=== PATIENT | female | born 1970 | race Caucasian/White ===

== ENCOUNTER 2016-12-19 02:02 | Emergency (ER) | payer MEDICAID ==
[~2016-12-19] VITALS: Ht 170.2 cm; Wt 72.5 kg
[~2016-12-19 02:02] MED LIST: HYDR-3498 PO; HYDR-762 PO; IBUP-1542 PO; RANI150T9 PO; SUCR1TAB56 PO
[2016-12-19 02:04] VITALS: Ht 170.2 cm; Wt 72.5 kg
--- NOTE | 2016-12-19 02:27 | ERA ---
ER Documentation Chief Complaint Date/Time DATE: 12/19/16 TIME: 02:26 Chief Complaint apd pain and back pain with nausea that started last night HPI The patient is a 46-year-old female, presenting to the ER because of lower abdominal pain, associated with dysuria, nausea but no vomiting for 1 day. He denies fever, chills, neck pain, chest pain, dyspnea, diarrhea. She does not smoke nor drink Past medical history: None Past surgical history: Abdominoplasty 3 years ago ROS All systems reviewed and are negative except as per history of present illness. Medications Home Meds Active Scripts Ibuprofen* (Motrin*) 600 Mg Tab, 600 MG PO Q6H Y for PAIN AND OR ELEVATED TEMP, #30 TAB Prov:TRES MAURO MD 12/19/16 Ciprofloxacin Hcl* (Ciprofloxacin Hcl*) 500 Mg Tablet, 500 MG PO BID for 10 Days , TAB Prov:TRES MAURO MD 12/19/16 Ranitidine Hcl* (Zantac*) 150 Mg Tablet, 150 MG PO BID Y for GASTROINTESTINAL UPSET, #30 TAB Prov:OMAR SHIN S. 04/14/15 Hydrocodone Bit-Acetaminophen* (Stuart*) 10-325 Mg Tablet, 1 TAB PO Q6 Y for PAIN , #20 TAB Prov:OMAR SHIN. 04/14/15 Sucralfate* (Carafate*) 1 Gm Tab, 1 GM PO QID, #30 TAB Prov:OMAR SHIN S. 04/14/15 Ibuprofen* (Ibuprofen*) 600 Mg Tablet, 600 MG PO Q6, #30 TAB Prov:BILL HART PA-C 03/14/15 Hydrocodone Bit-Acetaminophen* (Stuart*) 5-325 Mg Tab, 1 TAB PO Q4H Y for PAIN, # 14 TAB Prov:BILL HART PA-C 03/14/15 Allergies Allergies: Coded Allergies: No Known Allergy (Verified Allergy, Mild, NONE, 02/10/07) PMhx/Soc Hx Alcohol Use: No Hx Substance Use: No Hx Tobacco Use: No Physical Exam Vitals Vital Signs Date Time Temp Pulse Resp B/P Pulse Ox O2 Delivery O2 Flow Rate FiO2 12/19/16 06:21 89 18 123/79 96 Room Air 12/19/16 04:05 72 20 122/74 98 Room Air 12/19/16 02:04 98.3 92 16 138/77 100 Physical Exam Const: No acute distress. Head: Atraumatic. Eyes: Normal Conjunctiva. ENT: Normal External Ears, Nose and Mouth. Neck: Full range of motion. No meningismus. Resp: Clear to auscultation bilaterally. Cardio: Regular rate and rhythm, no murmurs. Abd: Soft, non distended, normal bowel sounds, diffuse lower abdominal tenderness, no rigidity, rebound, CVA tenderness Skin: No petechiae or rashes. Back: No midline or flank tenderness. Ext: No cyanosis, or edema. Neur: Awake and alert. No focal deficit Psych: Normal Mood and Affect. Result Diagram: 12/19/16 0245 12/19/16 0245 Results 24 hrs Laboratory Tests Test 12/19/16 02:45 12/19/16 03:15 White Blood Count 13.410^3/ul Red Blood Count 4.2310^6/ul Hemoglobin 11.9g/dl Hematocrit 36.8% Mean Corpuscular Volume 87.0fl Mean Corpuscular Hemoglobin 28.1pg Mean Corpuscular Hemoglobin Concent 32.3g/dl Red Cell Distribution Width 15.4% Platelet Count 31086^3/UL Mean Platelet Volume 11.4fl Neutrophils % 77.0% Lymphocytes % 14.3% Monocytes % 7.3% Eosinophils % 0.7% Basophils % 0.3% Nucleated Red Blood Cells % 0.0/100WBC Neutrophils # 10.310^3/ul Lymphocytes # 1.910^3/ul Monocytes # 1.010^3/ul Eosinophils # 0.110^3/ul Basophils # 0.010^3/ul Nucleated Red Blood Cells # 0.010^3/ul Sodium Level 141mmol/L Potassium Level 4.0mmol/L Chloride Level 111mmol/L Carbon Dioxide Level 28mmol/L Anion Gap 6 Blood Urea Nitrogen 10mg/dl Creatinine 0.60mg/dl Glucose Level 94mg/dl Calcium Level 9.5mg/dl Total Bilirubin 0.1mg/dl Direct Bilirubin 0.00mg/dl Indirect Bilirubin 0.1mg/dl Aspartate Amino Transf (AST/SGOT) 18IU/L Alanine Aminotransferase (ALT/SGPT) 42IU/L Alkaline Phosphatase 94IU/L Total Protein 6.8g/dl Albumin 3.9g/dl Globulin 2.90g/dl Albumin/Globulin Ratio 1.34 Lipase 45U/L Bedside Urine pH (LAB) 5.5 Bedside Urine Protein (LAB) 1+ Bedside Urine Glucose (UA) Negative Bedside Urine Ketones (LAB) Negative Bedside Urine Blood 2+ Bedside Urine Nitrite (LAB) Negative Bedside Urine Leukocyte Esterase (L 1+ Current Medications Medications (Trade) Dose Ordered Sig/Chiara Route PRN Reason Start Time Stop Time Status Last Admin Dose Admin Sodium Chloride (NS) 1,000 ml @ 1,000 mls/hr Q1H ONCE IV 12/19/16 03:00 12/19/16 03:59 DC 12/19/16 02:57 Morphine Sulfate (morphine) 2 mg ONCE ONCE IV 12/19/16 03:00 12/19/16 03:01 DC 12/19/16 02:52 Ondansetron HCl (Zofran Inj) 4 mg ONCE STAT IV 12/19/16 02:33 12/19/16 02:34 DC 12/19/16 02:52 Ketorolac Tromethamine 30 mg 30 mg ONCE STAT IV 12/19/16 03:58 12/19/16 03:59 DC 12/19/16 04:09 Sodium Chloride (NS) 1,000 ml @ 1,000 mls/hr Q1H ONCE IV 12/19/16 04:30 12/19/16 05:29 DC 12/19/16 04:10 Morphine Sulfate (morphine) 2 mg ONCE ONCE IV 12/19/16 04:30 12/19/16 04:31 DC 12/19/16 04:20 Procedures/[place] [id number] Radiology Main Line: [phone] DIAGNOSTIC IMAGING REPORT Patient: GLORIA FAY : 1970 Age: 46 Sex: F MR #: [id number] DOS: 12/19/16 0404 Ordering MD: TRES MAURO MD Location: E/R Room/Bed: PROCEDURE: CT ABDOMEN/PELVIS WITHOUT CONTRAST CLINICAL INDICATION: 46-year-old female with abdominal pain. TECHNIQUE: The study was performed utilizing a [employer] 64-slice CT scanner. Direct axial sections were obtained through the abdomen and pelvis without the use of intravenous contrast material. Sagittal and coronal reformations were obtained. One or more of the following dose reduction techniques were utilized: automated exposure control, adjustment of the mA and/ or kV according to patient's size or use of iterative reconstruction technique. The images were reviewed on a PACS workstation. CTD/vol = 12.6 mGy; Total Exam DLP = 789.9 mGy-cm. COMPARISON: None. FINDINGS: The inferior aspects of bilateral breast implants are noted. There is minimal bibasilar subsegmental atelectasis. There is no evidence for significant pleural effusion. The liver has a normal size and contour without focal areas of abnormal density. No intrahepatic nor extrahepatic biliary ductal dilatation is seen. The gallbladder contains a dependent discoid calcified gallstone with a smaller punctate calcified gallstone without significant wall thickening or pericholecystic fluid. The pancreas is without areas of abnormal attenuation. The spleen is identified and has a normal size without abnormal density. The adrenal glands are unremarkable. There is mild prominence of the right renal collecting system with proximal right perinephric infiltration but without evidence for chandni obstructive uropathy or nephroureterolithiasis. The left kidney is without abnormal density, calculi or obstruction. The urinary bladder contains urine. There is fecalization of the terminal ileum and retained stool within the ascending and transverse colon without obstruction. The appendix is visualized and is without abnormal thickening or surrounding inflammatory reaction. The uterus is unremarkable. There is no significant free fluid. Surgical clips are seen within the right inguinal region. The aortoiliac vessels are without aneurysmal dilatation. The osseous structures are intact. IMPRESSION: 1. Cholelithiasis. 2. Mild prominence of the right renal collecting system with proximal right perinephric infiltration without evidence for chandni obstructive uropathy or nephroureterolithiasis. This may represent infectious process a recently passed stone. Clinical correlation is necessary. 3. Fecalization of the terminal ileum with mild retained proximal colonic stool without obstruction. 4. No CT evidence for appendicitis. 5. Surgical clips right inguinal region. .Tashi Fowler MD, MD Date Time Electronically viewed and signed by .Tashi Fowler MD, on 12/19/2016 05:06 .M/ CC: TRES MAURO MD MEDICAL MAKING DECISION: The patient is a 46-year-old female, presenting to the ER because of acute cystitis, acute biliary colic. She was treated with 2 L normal saline for clinical dehydration, morphine 2 mg IV 2 and Toradol 30 mg IV 1 for pain and Zofran IV for nausea with good response. The differential diagnoses considered include but are not limited to cholelithiasis, cholecystitis, cystitis, pancreatitis, hepatitis, gastritis, peptic ulcer disease, gastric ulcer, appendicitis, diverticulitis, cholangitis, choledocholithiasis, partial small bowel obstruction. Departure Diagnosis: Primary Impression: UTI (urinary tract infection) Additional Impressions: Biliary colic Anemia Condition: Good Comments She was discharged with Cipro and Motrin I discussed the findings with the patient. I advised the patient to follow-up with the primary physician in about 1-2 days, sooner if needed and return if any concern. The patient's blood pressure was elevated (>120/80) but appears stable without evidence of hypertension emergency or urgency. The patient was counseled about the risks of hypertension and urged to pursue outpatient monitoring and therapy within a week with their primary care physician. TRES MAURO MD December 19, 2016 02:27
[2016-12-19] MEDS ORDERED: ONDANSETRON 4 MG INJ IV STA (02:33)
[2016-12-19 02:55] LABS: ADD SCAN DIFF NO
[2016-12-19 02:57] LABS: BASOPHILS % 0.3 % (0.0-2.0); EOSINOPHILS # 0.1 10^3/ul (0.0-0.5); EOSINOPHILS % 0.7 % (0.0-7.0); HEMATOCRIT 36.8 % (37.0-47.0); HEMOGLOBIN 11.9 g/dl (12.0-16.0); LYMPHOCYTES # 1.9 10^3/ul (0.8-2.9); LYMPHOCYTES % 14.3 % (15.0-51.0); MEAN CORPUSCULAR HEMOGLOBIN 28.1 pg (29.0-33.0); MEAN CORPUSCULAR HGB CONC 32.3 g/dl (32.0-37.0); MEAN PLATELET VOLUME 11.4 fl (7.4-10.4); MONOCYTES % 7.3 % (0.0-11.0); NEUTROPHIL # 10.3 10^3/ul (1.6-7.5); PLATELET COUNT 288 10^3/UL (140-415); RED BLOOD COUNT 4.23 10^6/ul (4.20-5.40); RED CELL DISTRIBUTION WIDTH 15.4 % (11.5-14.5); WHITE BLOOD COUNT 13.4 10^3/ul (4.8-10.8)
[2016-12-19] MEDS ORDERED: morphine 2 MG INJ IV ONE ×2 (03:00→04:30)
[2016-12-19] MEDS ORDERED: SOD CHLORIDE 0.9% 1,000 ML IV ONE ×2 (03:00→04:30)
[2016-12-19 03:13] LABS: URINE BLOOD (Dip) POC 2+ (NEGATIVE)
[2016-12-19 03:19] LABS: ALBUMIN 3.9 g/dl (3.3-4.9)
[2016-12-19 03:21] LABS: BILIRUBIN,INDIRECT 0.1 mg/dl (0-1.1); BILIRUBIN,TOTAL 0.1 mg/dl (0.2-1.3); CREATININE 0.6 mg/dl (0.44-1.00)
[2016-12-19 03:22] LABS: ALBUMIN/GLOBULIN RATIO 1.34; CALCIUM 9.5 mg/dl (8.4-10.2); TOTAL PROTEIN 6.8 g/dl (6.1-8.1)
[2016-12-19] MEDS ORDERED: KETOROLAC 30 MG INJ IV STA (03:58)
--- NOTE | 2016-12-19 05:06 | RADRPT ---
PROCEDURE: CT ABDOMEN/PELVIS WITHOUT CONTRAST CLINICAL INDICATION: 46-year-old female with abdominal pain. TECHNIQUE: The study was performed utilizing a [employer] VCT 64-slice CT scanner. Direct axia l sections were obtained through the abdomen and pelvis without the use of intravenous contrast mate rial. Sagittal and coronal reformations were obtained. One or more of the following dose reduction t echniques were utilized: automated exposure control, adjustment of the mA and/or kV according to pat ient's size or use of iterative reconstruction technique. The images were reviewed on a PACS workst [facility]. CTD/vol = 12.6 mGy; Total Exam DLP = 789.9 mGy-cm. COMPARISON: None. FINDINGS: The inferior aspects of bilateral breast implants are noted. There is minimal bibasilar subsegmenta l atelectasis. There is no evidence for significant pleural effusion. The liver has a normal size and contour without focal areas of abnormal density. No intrahepatic nor extrahepatic biliary ductal dilatation is seen. The gallbladder contains a dependent discoid calcified gallstone with a smaller punctate calcified gallstone without significant wall thickening or pericholecystic fluid. The panc reas is without areas of abnormal attenuation. The spleen is identified and has a normal size witho ut abnormal density. The adrenal glands are unremarkable. There is mild prominence of the right alcides l collecting system with proximal right perinephric infiltration but without evidence for chandni obst ructive uropathy or nephroureterolithiasis. The left kidney is without abnormal density, calculi or obstruction. The urinary bladder contains urine. There is fecalization of the terminal ileum and retained stool within the ascending and transverse colon without obstruction. The appendix is visua lized and is without abnormal thickening or surrounding inflammatory reaction. The uterus is unremar kable. There is no significant free fluid. Surgical clips are seen within the right inguinal regio n. The aortoiliac vessels are without aneurysmal dilatation. The osseous structures are intact. IMPRESSION: 1. Cholelithiasis. 2. Mild prominence of the right renal collecting system with proximal right perinephric infiltratio n without evidence for chandni obstructive uropathy or nephroureterolithiasis. This may represent inf ectious process a recently passed stone. Clinical correlation is necessary. 3. Fecalization of the terminal ileum with mild retained proximal colonic stool without obstruction . 4. No CT evidence for appendicitis. 5. Surgical clips right inguinal region. .Tashi Fowler MD, Date Time Electronically viewed and signed by .Tashi Fowler MD, on 12/19/2016 05:06 .Lg/
[2016-12-19] MEDS ORDERED: IBUP-1542 PO (05:43)
[2016-12-19] MEDS ORDERED: CIPR500T4 PO (05:43)
[2016-12-19 06:21] VITALS: BP 123/79; PULSE 89; RESP 18
== END 2016-12-19 06:26 | disposition home or self-care (01) ==
LOC: E/R 02:02
DX: N39.0 Urinary tract infection, site not specified (principal); K80.50 Calculus of bile duct without cholangitis or cholecystitis without obstruction; D64.9 Anemia, unspecified; R11.0 Nausea
CPT/HCPCS: 74176; 80053; 81003; 83690; 85025; J1885; J2270; J2405; J7030; 36415; 96374; 96375; 96376

== ENCOUNTER 2018-06-24 01:02 | Emergency (ER) | END 2018-06-24 04:08 | disposition home or self-care (01) ==